=== PATIENT | female | born 2000 | race African-American/Black ===

== ENCOUNTER 2024-12-19 13:32 | Inpatient (IN) | payer OTHER, MEDICAID ==
[2024-12-19] MEDS ORDERED: IBUPROFEN 600 MG TAB PO PRN (13:40)
[2024-12-19] MEDS ORDERED: MAGNESIUM HYDROXIDE 2,400 MG/30 ML CUP PO PRN (13:40)
[2024-12-19] MEDS ORDERED: ACETAMINOPHEN TAB 325 MG TAB PO PRN (13:40)
[2024-12-19] MEDS ORDERED: MAG HYDROX/AL HYDROX/SIMETH 355 ML BOTTLE PO PRN (13:40)
[2024-12-19] MEDS ORDERED: HALOPERIDOL LACTATE 5 MG/ML 1 ML VIAL IM PRN (14:03)
[2024-12-19] MEDS ORDERED: LORazepam 2 MG/ML INJ IM PRN (14:03)
[2024-12-19 18:28] LABS: Glucose,Whole Blood 162 mg/dL (70-110)
[2024-12-19] MEDS: INSULIN LISPRO (HumaLOG) 100 UNIT/ML 10 mL VL SQ SCH (18:46)
[2024-12-19 20:20] LABS: Glucose,Whole Blood 142 mg/dL (70-110)
[2024-12-20 07:53] LABS: Glucose,Whole Blood 301 mg/dL (70-110)
[2024-12-20 08:01] LABS: Basophils # (A) 0.03 10*3/uL (0.00-0.10); Basophils % (A) 0.8 %; Eosinophils # (A) 0.22 10*3/uL (0.04-0.35); Eosinophils % (A) 5.5 %; HCT 39.1 % (37.2-46.3); HGB 13.2 g/dL (12.0-15.0); Lymphocytes # (A) 1.66 10*3/uL (0.90-5.00); Lymphocytes % (A) 41.5 %; MCH 31.6 pg (27.0-32.0); MCHC 33.8 g/dL (32.0-37.0); MCV 93.5 fL (80.0-97.0); Mean Platelet Volume 9.5 fL (9.5-12.2); Monocytes # (A) 0.31 10*3/uL (0.20-1.00); Monocytes % (A) 7.8 %; Neutrophils # (A) 1.77 10*3/uL (1.80-7.70); Neutrophils % (A) 44.1 %; Platelet Count 308 10*3/uL (140-440); RBC 4.18 10*6/uL (4.10-5.20); RDW 11.9 % (11.5-14.5)
[2024-12-20] MEDS: lamoTRIgine 100 MG TAB PO SCH (08:15)
[2024-12-20] MEDS: NICOTINE 14MG/24HR PATCH TRANSDERM SCH (08:15)
[2024-12-20] MEDS: ATORVASTATIN 10 MG TAB PO SCH (08:16)
[2024-12-20] MEDS: DULoxetine HCL 60 MG CAPSULE.DR PO SCH (08:16)
[2024-12-20] MEDS: risperiDONE 2 MG TAB PO SCH (08:16)
[2024-12-20] MEDS: INSULIN GLARGINE (LANTUS) 100 UNIT/ML SYR SQ SCH (08:39)
[2024-12-20] MEDS: NALTREXONE HCL 50 MG TAB PO SCH (12:28)
[2024-12-20 12:42] LABS: Glucose,Whole Blood 215 mg/dL (70-110)
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
[2024-12-20 17:33] LABS: Glucose,Whole Blood 281 mg/dL (70-110)
[2024-12-20 20:03] LABS: Glucose,Whole Blood 277 mg/dL (70-110)
[2024-12-20] MEDS: lamoTRIgine 25 MG TAB PO SCH (20:18)
[2024-12-20] MEDS: LORazepam 1 MG TAB PO PRN (20:47)
[2024-12-21 08:03] LABS: Glucose,Whole Blood 161 mg/dL (70-110)
[2024-12-21 12:39] LABS: Glucose,Whole Blood 273 mg/dL (70-110)
--- NOTE | 2024-12-21 14:55 | P.PN ---
Progress Note - Text Progress Note Date: 12/21/24 Dictation was produced using [employer] dictation software. Please excuse any grammatical, word or spelling errors. Interval history: Patient was seen in the dayroom and was directable and agreeable to speak with the lyric writer in the office for psychiatric follow-up. The patient states that she is feeling "good, a lot better than when I came in here." States that depression and anxiety are at the low side, she rated depression at 0/10, and anxiety at 2/10. She denied any current SI/HI or self harm, states that she used to self harm in the past via cutting last week. She denied any current AVH. She admitted to good sleep, it is reported that patient slept 6 hours overnight. She reported good appetite. She states that she feel safe in the unit, getting a long well with everyone. She has been taking her medications, she denied any current side effects. She denied any muscle stiffness, rigidity, abnormal movements, or drooling. 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 She has no other concerns at this time. MENTAL STATUS EXAM: General Appearance: Patient appears to be stated age is alert, directable, and attempts to cooperate. Patient appears to have fair hygiene and grooming. She has blond dyed dreadlocks Behavior: Patient is seated without any agitated behavior. Speech: Patient's speech is fluent and nonpressured. Mood/Affect: Patient reports their mood is depressed, affect is congruent and constricted. Suicidality/Homicidality: Patient denies having any homicidal ideation intent or plan. Denies any suicidal ideations intent or plan Perceptions: Patient denies any visual hallucinations and denies any auditory hallucinations Though content/process: There is no evidence of any delusional thought content and thought process is linear and logical. Memory and concentration: AOX3, grossly intact for the purposes of this session. Can spell "WORLD" backwards Judgment and insight: Fair IMPRESSIONS: Bipolar disorder, current episode depressed Borderline personality disorder Generalized anxiety disorder Alcohol use disorder Hallucinogen use disorder Cannabis use disorder Nicotine dependence Assessment/Plan: Continue with current diagnosis. Patient continues to meet criteria for inpatient psychiatric admission for symptom stabilization and safety. Patient will be maintained on current psychotropic medication regimen which include Lamictal 200 mg daily and 50 mg at bedtime, Risperdal 2 mg p.o. at bedtime, Cymbalta 60 mg p.o. 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 Monitor for medication compliance and for any psychotropic medication side effects. Will continue to monitor ongoing response to treatment, no changes today. Encouraged participation in milieu.
[2024-12-21 17:44] LABS: Glucose,Whole Blood 264 mg/dL (70-110)
[2024-12-21 20:22] LABS: Glucose,Whole Blood 258 mg/dL (70-110)
[2024-12-22 07:47] LABS: Glucose,Whole Blood 77 mg/dL (70-110)
[2024-12-22 12:37] LABS: Glucose,Whole Blood 205 mg/dL (70-110)
--- NOTE | 2024-12-22 13:11 | P.PN ---
Progress Note - Text Progress Note Date: 12/22/24 Dictation was produced using [employer] dictation software. Please excuse any grammatical, word or spelling errors. Interval history: Patient was seen in the dayroom and was directable and agreeable to speak with the automobile and property underwriter in the office for psychiatric follow-up. The patient states that she is feeling well, states that she slept well last night, it is reported that she slept 3 hours. She reported that depression and anxiety to be at the low side, she rated both 0/10. She denied any current SI/HI or self harm. Denied any current AVH. He has been eating well. She has been compliant with her medication, denied any current side effects. Denied any rash, denied any muscle stiffness, rigidity, abnormal movements, or drooling. 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 States that she has been seeing her therapist weekly. She has no other concerns. MENTAL STATUS EXAM: General Appearance: Patient appears to be stated age is alert, directable, and attempts to cooperate. Patient appears to have fair hygiene and grooming. She has blond dyed dreadlocks Behavior: Patient is seated without any agitated behavior. Speech: Patient's speech is fluent and nonpressured. Mood/Affect: Patient reports their mood is depressed, affect is congruent and constricted. Suicidality/Homicidality: Patient denies having any homicidal ideation intent or plan. Denies any suicidal ideations intent or plan Perceptions: Patient denies any visual hallucinations and denies any auditory hallucinations Though content/process: There is no evidence of any delusional thought content and thought process is linear and logical. Memory and concentration: AOX3, grossly intact for the purposes of this session. Can spell "WORLD" backwards Judgment and insight: Fair IMPRESSIONS: Bipolar disorder, current episode depressed Borderline personality disorder Generalized anxiety disorder Alcohol use disorder Hallucinogen use disorder Cannabis use disorder Nicotine dependence Assessment/Plan: Continue with current diagnosis. Patient continues to meet criteria for inpatient psychiatric admission for symptom stabilization and safety. Patient will be maintained on current psychotropic medication regimen which include Lamictal 200 mg daily and 50 mg at bedtime, Risperdal 2 mg p.o. at bedtime, Cymbalta 60 mg p.o. 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 Monitor for medication compliance and for any psychotropic medication side effects. Will continue to monitor ongoing response to treatment, no changes today. Encouraged participation in milieu.
[2024-12-22 17:24] LABS: Glucose,Whole Blood 277 mg/dL (70-110)
[2024-12-22 18:20] LABS: Appearance,Urine Clear (Clear); Bilirubin,Urine Negative (Negative); Blood,Urine Negative (Negative); Color,Urine Colorless; Glucose,Urine (UA) 4+ (Negative); Ketones,Urine 1+ (Negative); Leukocyte Esterase,Urine Negative (Negative); Nitrite,Urine Negative (Negative); PH, Urine 6.5 (5.0-8.0); Protein,Urine Negative (Negative); Specific Gravity,Urine 1.019 (1.001-1.035); Urobilinogen,Urine <2.0 mg/dL (<2.0)
[2024-12-22 20:05] LABS: Glucose,Whole Blood 166 mg/dL (70-110)
--- NOTE | 2024-12-23 02:10 | P.MDCNMH ---
History of Present Illness H&P Date: 12/22/24 24-year-old female with diabetes mellitus Patient coming in for mental health evaluation The patient currently denies any medical concerns , denies any fever, chills, cough, sore throat, chest pain , trouble breathing , nausea , vomiting, abd pain , changes in urinary or bowel habits. Patient denies any illicit drugs or alcohol, she admits to tobacco smoking She reports that her white count is always low for unknown reason review of systems Pertinent positives as noted in HPI. All other systems were reviewed and are negative on exam Constitutional: No acute distress Eyes: Anicteric sclerae, moist conjunctiva, Pupils equal round reactive to light Lungs: Clear to auscultation Clear to percussion Normal respiratory effort, no accessory muscle use Cardiovascular: Heart regular in rate and rhythm, No murmurs, gallops, or rubs No peripheral edema Abdominal: Soft Nontender, no guarding, rebound or rigidity Abdomen moving with respiration Normoactive bowel sounds Extremities: No clubbing Pedal pulses intact and symmetrical Radial pulses intact and symmetrical No calf tenderness Psychiatric: Alert and oriented to person, place and time Neuro Muscles Strength 5/5 in all 4 extremities Sensation to light touch grossly present throughout Assessment and plan Leukopenia Suspected to be secondary to antiepileptics/mood stabilizer lamotrigine Continue to monitor white count if continues to trend down consider alternatives to the medication above White count is 4 Diabetes mellitus poorly controlled Insulin sliding scale Continue with long-acting insulin home dose A1c is 8.5 Thank you for allowing us to participate in the care of this pleasant patient. Do not hesitate to contact us with questions. Someone can be reached from the [facility] hospitalist group all hours of the day at [phone] or via [employer] Past Medical History Past Medical History: Diabetes Mellitus History of Any Multi-Drug Resistant Organisms: None Reported Past Surgical History: No Surgical Hx Reported Past Psychological History: Depression Smoking Status: Unknown if ever smoked Medications and Allergies Allergies Allergy/AdvReac Type Severity Reaction Status Date / Time No Known Allergies Allergy Verified 12/19/24 13:40 Physical Exam Vitals: Vital Signs Temp Pulse Resp BP Pulse Ox 12/22/24 21:00 98.0 F 91 16 126/78 99 12/22/24 09:00 98.6 F 78 16 134/85 96 Intake and Output 12/22/24 12/22/24 12/23/24 14:59 22:59 06:59 Other: Weight 62.6 kg Cranial Nerve Examination - Cranial Nerves Cranial Nerve II- Optic: Intact Cranial Nerve III- Oculomotor: Intact Cranial Nerve IV- Trochlear: Intact Cranial Nerve V- Trigeminal: Intact Cranial Nerve - Abducens: Intact Cranial Nerve VII- Facial: Intact Cranial Nerve VIII- Auditory: Intact Cranial Nerve IX- Glossopharyngeal: Intact Cranial Nerve X- Vagus: Intact Cranial Nerve XI- Accessory: Intact Cranial Nerve XII- Hypoglossal: Intact Results CBC & Chem 7: 12/20/24 07:33 Labs: Abnormal Lab Results - Last 24 Hours (Table) 12/22/24 12/22/24 12/22/24 Range/Units 12:35 17:22 18:01 POC Glucose (mg/dL) 205 H 277 H (70-110) mg/dL Urine Glucose (UA) 4+ H (Negative) Urine Ketones 1+ H (Negative) 12/22/24 Range/Units 20:04 POC Glucose (mg/dL) 166 H (70-110) mg/dL Urine Glucose (UA) (Negative) Urine Ketones (Negative)
[2024-12-23 07:39] LABS: Glucose,Whole Blood 56 mg/dL (70-110)
[2024-12-23 07:55] LABS: Glucose,Whole Blood 71 mg/dL (70-110)
[2024-12-23 12:43] LABS: Glucose,Whole Blood 211 mg/dL (70-110)
--- NOTE | 2024-12-23 14:05 | P.PN ---
Progress Note - Text Progress Note Date: 12/23/24 Interval History: Patient was seen wandering the hallways and was directable and agreeable to sp esme with mortgage loan underwriter in the office. Patient expresses feeling better today. He states he has been sleeping well and expressed no concerns today. They have a therapist at [facility] in [place]. She states she will return to the [facility] upon discharge and plan on continuing to work at the [employer]. At this time patient denies any suicidal or homicidal ideations, intent or plan. Patient denies any auditory, visual hallucinations and denies any paranoia or delusions. Patient denies any side effects from the medications and has been compliant with meds. Mental Status Exam: General Appearance: Patient appears to be stated age is alert, directable, and cooperative. She has dreadlocks, fair grooming and hygiene Behavior: Patient is calmly seated without any agitated behavior. Speech: Patient's speech is fluent and nonpressured. Mood/Affect: Mood is improving mildly, affect is congruent and blunted. Suicidality/Homicidality: Patient denies having any suicidal or homicidal ideation intent or plan. Perceptions: Patient denies any visual hallucinations and denies any auditory hallucinations Though content/process: There is no evidence of any delusional thought content and thought process is linear and goal-directed. Memory and concentration: AOX3, grossly intact for the purposes of this session Judgment and insight: Improving mildly Assessment Bipolar disorder, current episode depressed Borderline personality disorder Generalized anxiety disorder Alcohol use disorder Hallucinogen use disorder Cannabis use disorder Nicotine dependence Plan: -Patient continues to meet criteria for inpatient psychiatric admission for symptom stabilization and safety. Patient has signed adult voluntary form and medication consent and was placed in patient's chart. -Medications: Continue Lamictal 200 mg daily and 50 mg at bedtime for mood stabilization, Risperdal 2 mg at bedtime for bipolar disorder, Cymbalta 60 mg daily for depression -When necessary Ativan and Haldol for agitation/aggression. -Labs: Reviewed -NRT - nicotine patch -SW on board for discharge planning. Encouraged the patient to participate in milieu. Anticipate discharge tomorrow, back home alone
[2024-12-23] MEDS ORDERED: INSULIN GLARGINE (LANTUS) 100 UNIT/ML SYR SQ SCH (16:52)
[2024-12-23 17:39] LABS: Glucose,Whole Blood 178 mg/dL (70-110)
[2024-12-23 19:55] LABS: Glucose,Whole Blood 353 mg/dL (70-110)
[2024-12-23] MEDS: INSULIN GLARGINE (LANTUS) 100 UNIT/ML SYR SQ SCH (19:57)
[2024-12-23 21:20] VITALS: BP 110/74; PULSE 90; RESP 16; TEMP 97.9
[2024-12-24] MEDS: haloperidoL 5 MG TAB PO PRN (02:52)
[2024-12-24 07:42] LABS: Glucose,Whole Blood 62 mg/dL (70-110)
[2024-12-24 08:57] LABS: Glucose,Whole Blood 75 mg/dL (70-110)
[2024-12-24 12:35] LABS: Glucose,Whole Blood 93 mg/dL (70-110)
--- NOTE | 2024-12-24 13:12 | P.DS ---
Providers Date of admission: 12/19/24 18:26 Expected date of discharge: 12/24/24 Attending physician: Krissy Monzon MD Consults: 12/19/24 13:40 Consult Physician Routine Consulting Provider: Marli Physician Consult Reason/Comments: H&P, diabetic Do you want consulting provider notified?: Yes Primary care physician: Stated None - Discharge Diagnosis(es) (1) Bipolar disorder current episode depressed Current Visit: Yes Status: Acute Priority: High (2) Borderline personality disorder Current Visit: Yes Status: Chronic Priority: Medium (3) Generalized anxiety disorder Current Visit: Yes Status: Acute Priority: Medium (4) Alcohol use disorder Current Visit: Yes Status: Acute Priority: Medium (5) Hallucinogen use Current Visit: Yes Status: Acute Priority: Medium (6) Cannabis use disorder Current Visit: Yes Status: Acute Priority: Medium (7) Nicotine dependence Current Visit: Yes Status: Acute Priority: Low Hospital Course: Admission HPI: Admission note was completed by consumer loan underwriter" Patient presented to the hospital with SI with a plan. Per EPS, "PT IS A TRANSFER FROM [facility]. Pt is depressed with a hx of suicide attempts. Pt has current SI with plan to jump off a bridge [place] her home. Pt denied HI, hallucinations, or delusions. No prns or restraints. Pt admitted to Marijuana use and hallucinogens. Pts UDS +MJ. Covid Neg. VSS. HCG Neg, Labs WNL besides NA+ slightly low at 132. Pt a diabetic and levels have ranged from 55-325, pt has been getting corrective insulin. ETOH <10. NKDA. Pt is currently staying in a hotel." Patient seen and evaluated on the unit and was agreeable with speaking to consumer loan underwriter in office. She states losing her job, her girlfriend and her house within the past 2 weeks. She is currently homeless however is staying at a motel and did recently obtain a new job. She states losing her job due to failing a drug test, stating she has been using psilocybin and cannabis heavily. She reports experiencing suicidal ideations and attempted to hang herself however she cannot acted her therapist who ultimately got her help. Patient admits to low mood, sleep and appetite changes, low energy, psychomotor slowing. Patient does admit to anxiety that appears generalized in nature with racing thoughts, feeling on edge. Patient denies any suicidal or homicidal ideations intent or plan. At this time patient denies any auditory or visual hallucinations. Patient denies any flight of ideas racing thoughts and increased in goal directed behavior. She does describe a history of issac that last occurred back in 2022. Patient admits to using psilocybin and cannabis daily, nicotine daily with 1-2 bottles of wine per setting." Hospital course: Upon admission to the unit patient was directable and agreeable to commence treatment and signed adult voluntary form.. Patient got along well with other patients on the unit and followed unit protocol. Patient was compliant with the medications and denied any side effects throughout hospital course. Patient was continued on Lamictal and this was increased to 200 mg daily and 50 mg at bedtime for mood stabilization, Risperdal 2 mg at bedtime for bipolar disorder, Cymbalta 60 mg daily for depression. Patient spoke of her stressors and engaged in therapy both group and individual. Patient was also seen by medical team for history and physical exam. Throughout the course of the hospitalization patient gradually improved with regards to mood, anxiety, sleep and returned back to their baseline level of functioning. On the day of discharge patient denied any suicidal or homicidal ideations intent or plan denied any auditory or visual hallucinations. The patient denied any access to guns or weapons. Patient denied any paranoia and did not endorse any delusions. Patient does have a significant history of substance abuse and was counseled on abstaining from all substances including alcohol and marijuana. Patient was offered however declined inpatient substance-abuse rehab. Patient was also counseled on the medications and need for regular compliance and was encouraged to follow-up with their outpatient appointment for mental health and also for primary care. Patient to be discharged to [facility] and will follow-up with affirmations counseling Mental status exam: General Appearance: Patient appears to be stated age is alert, pleasant, and cooperative. Patient is in no acute distress and has fair hygiene and grooming. Patient has dreadlocks Behavior: Patient is calmly seated without any agitated behavior. Speech: Patient's speech is fluent and nonpressured. Mood/Affect: Patient reports their mood is "better", affect is congruent and euthymic. Suicidality/Homicidality: Patient denies having any suicidal or homicidal ideation intent or plan. Perceptions: Patient denies any auditory or visual hallucinations. Though content/process: There is no evidence of any delusional thought content and thought process is linear and goal-directed. Memory and concentration: AOX3, grossly intact for the purposes of this session. Can spell "WORLD" backwards correctly. Judgment and insight: Fair Impression: Bipolar disorder, current episode depressed Borderline personality disorder Generalized anxiety disorder Alcohol use disorder Hallucinogen use disorder Cannabis use disorder Nicotine dependence Plan: -Continue with discharge today as patient has improved and stabilized psychiatrically and is not currently an imminent threat to themself and/or others. -Continue medications: Lamictal 200 mg daily and 50 mg at bedtime, Risperdal 2 mg at bedtime, Cymbalta 60 mg daily. Encourage patient to speak to her outpatient provider regarding the possibility of changing Risperdal to a more metabolically friendly agent given her elevated A1c -Patient was counseled on the need for medication compliance and appropriate follow-up at mental health and also primary care for medical issues. Patient verbalized understanding and agreed. -Social work to help coordinate patients discharge today. also to ensure safe home environment that guns/weapons are either removed from the home or locked away. Social work also to arrange for patients follow up appointments with [facility] for psychiatric care along with follow up with primary care provider. -Patient counseled on abstaining from recreational drugs and marijuana and alcohol. Was informed/educated on the adverse effects on their physical and mental health. Patient verbally agreed and understood. Patient was offered [facility] however declined at this time. -Patient was instructed to return to the hospital or seek immediate medical care if their psychiatric or medical symptoms do worsen or reoccur. Abnormal Labs 12/19/24 12/19/24 12/20/24 18:21 20:19 07:33 WBC Neutrophils # POC Glucose (mg/dL) 162 H 142 H Hemoglobin A1c 8.5 H Urine Glucose (UA) Urine Ketones 12/20/24 12/20/24 12/20/24 07:33 07:52 12:40 WBC 4.00 L Neutrophils # 1.77 L POC Glucose (mg/dL) 301 H 215 H Hemoglobin A1c Urine Glucose (UA) Urine Ketones 12/20/24 12/20/24 12/21/24 17:32 20:02 07:58 WBC Neutrophils # POC Glucose (mg/dL) 281 H 277 H 161 H Hemoglobin A1c Urine Glucose (UA) Urine Ketones 12/21/24 12/21/24 12/21/24 12:37 17:42 20:19 WBC Neutrophils # POC Glucose (mg/dL) 273 H 264 H 258 H Hemoglobin A1c Urine Glucose (UA) Urine Ketones 12/22/24 12/22/24 12/22/24 12:35 17:22 18:01 WBC Neutrophils # POC Glucose (mg/dL) 205 H 277 H Hemoglobin A1c Urine Glucose (UA) 4+ H Urine Ketones 1+ H 12/22/24 12/23/24 12/23/24 20:04 07:37 12:41 WBC Neutrophils # POC Glucose (mg/dL) 166 H 56 L 211 H Hemoglobin A1c Urine Glucose (UA) Urine Ketones 12/23/24 12/23/24 12/24/24 17:37 19:54 07:41 WBC Neutrophils # POC Glucose (mg/dL) 178 H 353 H 62 L Hemoglobin A1c Urine Glucose (UA) Urine Ketones Allergies Allergy/AdvReac Type Severity Reaction Status Date / Time No Known Allergies Allergy Verified 12/19/24 13:40 Vital Signs Temp 97.9 F 12/23/24 21:00 Pulse 90 12/23/24 21:00 Resp 16 12/23/24 21:00 BP 110/74 12/23/24 21:00 Pulse Ox 99 12/23/24 21:00 FiO2 Patient Condition at Discharge: Stable Plan - Discharge Summary Discharge Rx Participant: No New Discharge Prescriptions: New DULoxetine HCL [Cymbalta] 60 mg PO DAILY #0 cap Nicotine 14Mg/24Hr Patch [Habitrol] 1 patch TRANSDERM DAILY patch INSULIN LISPRO (HumaLOG) [HumaLOG] 0 unit SQ ACHS each Insulin Glargine (Lantus) [Lantus Vial] 48 unit SQ DAILY@2100 each Atorvastatin [Lipitor] 10 mg PO DAILY 30 Days #30 tab Naltrexone HCl [Revia] 50 mg PO DAILY 30 Days #30 tab lamoTRIgine [LaMICtal] 50 mg PO HS 30 Days #60 tab lamoTRIgine [LaMICtal] 200 mg PO DAILY tab risperiDONE [RisperDAL] 2 mg PO DAILY tab Discharge Medication List Atorvastatin [Lipitor] 10 mg PO DAILY 30 Days #30 tab 12/24/24 [Rx] DULoxetine HCL [Cymbalta] 60 mg PO DAILY #0 cap 12/24/24 [Rx] INSULIN LISPRO (HumaLOG) [HumaLOG] 0 unit SQ ACHS each 12/24/24 [Rx] Insulin Glargine (Lantus) [Lantus Vial] 48 unit SQ DAILY@2100 each 12/24/24 [Rx] Naltrexone HCl [Revia] 50 mg PO DAILY 30 Days #30 tab 12/24/24 [Rx] Nicotine 14Mg/24Hr Patch [Habitrol] 1 patch TRANSDERM DAILY patch 12/24/24 [Rx] lamoTRIgine [LaMICtal] 50 mg PO HS 30 Days #60 tab 12/24/24 [Rx] lamoTRIgine [LaMICtal] 200 mg PO DAILY tab 12/24/24 [Rx] risperiDONE [RisperDAL] 2 mg PO DAILY tab 12/24/24 [Rx] Follow up Appointment(s)/Referral(s): [facility]seling [Other] - 12/26/24 12:00 pm (12/26 @ 14:00 with Rashawn via Telehealth ) [facility] [Other] - 1 Week Patient Instructions/Handouts: Bipolar Disorder (DC), Borderline Personality Disorder (DC), Anxiety (ED) Activity/Diet/Wound Care/Special Instructions: Avoid the use of street drugs and alcohol. Take all medications as prescribed. When you are in need of refills on your medications, please contact your medical provider and/or outpatient psychiatrist/provider to have this done. Please go to your scheduled outpatient appointment for aftercare treatment. If symptoms return or become worse, call the crisis line at and/or go to the nearest emergency room for evaluation. National Suicide Hotline [facility] [facility] confidentiality statement: "The information contained in this communication, including attachments, is confidential, may be privileged, and is intended only for the use of the named recipient(s). Unauthorized use, disclosure, forwarding or copying is strictly prohibited and may be unlawful. If you have received this communication in error, please notify me IMMEDIATELY at the phone number or pager listed above. Discharge Disposition: HOME SELF-CARE
--- NOTE | 2024-12-25 11:20 | CDI ---
Documentation Clarification Form Date: 12/25/2024 11:08:42 AM From: Leonela Casey Phone: Admit Date: 12/19/2024 06:26:00 PM Patient Name: Clifford Yee Visit Number: [id number] Discharge Date: 12/24/2024 01:20:00 PM ATTENTION: The Clinical Documentation Specialists (CDI) and [facility] Coding Staff appreciate your assistance in clarifying documentation. Please respond to the clarification below the line at the bottom and electronically sign. The CDI & [facility] Coding staff will review the response and follow-up if needed. Please note: Queries are made part of the Legal Health Record. If you have any questions, please contact the author of this message via ITS. Doctor/Provider: Belkis Reno There is documentation of Diabetes mellitus poorly controlled in consult note on 12/22 Additional clarification is requested. History/Risk Factors: 24-year-old female withdiabetes mellitus. Pt isdepressedwith ahx of suicide attempts. Pt has current SI with plan to jump off a bridge near her home. PtdeniedHI, hallucinations, ordelusions. Noprns orrestraints. Pt admitted toMarijuana useand hallucinogens. Clinical Indicators: Consult 12/22 -Diabetes mellitus poorly controlled Insulin sliding scale Continue with long-acting insulin home dose A1c is 8. 5 Psychiatry pn [facility] and agreeable to speak with script writer in the office. Patient expresses feeling better today. He states he has been sleeping well and expressed no concerns today Treatment: Insulin sliding scale Continue with long-acting insulin home dose Can you please clarify Uncontrolled DM is hyperglycemia? [ ] Yes , DM with hyperglycemia is present [ ] No , DM with hyperglycemia is not present [ ] Other, please specify [ ] Unable to determine (Template Last Revised: September 2020) Yes , DM with hyperglycemia is present MTDD
== END 2024-12-24 13:20 | disposition home or self-care (01) | DRG 885 ==
LOC: 3MHU 18:26
PROVIDERS: ADMIT Psychiatry & Neurology Psychiatry; ATTEND Psychiatry & Neurology Psychiatry
DX: F31.30 Bipolar disorder, current episode depressed, mild or moderate severity, unspecified (principal); R45.851 Suicidal ideations; Z59.01 Sheltered homelessness; D72.819 Decreased white blood cell count, unspecified; F10.10 Alcohol abuse, uncomplicated; E11.65 Type 2 diabetes mellitus with hyperglycemia; F16.10 Hallucinogen abuse, uncomplicated; F60.3 Borderline personality disorder; F41.1 Generalized anxiety disorder; F12.10 Cannabis abuse, uncomplicated; F17.200 Nicotine dependence, unspecified, uncomplicated; Z91.51 Personal history of suicidal behavior
CPT/HCPCS: 80175; 81003; 83036; 84443; 85025